=== PATIENT | male | born 1940 | race American Indian/Alaskan Native ===

== ENCOUNTER 2020-07-13 06:57 | Day surgery (SDC) | payer MEDICARE, OTHER ==
[~2020-07-13 06:57] MED LIST: LACTATED RINGERS 1,000 ML IV SCH; MIDAZOLAM 2 MG/2 ML INJ IV NR
--- NOTE | 2020-07-13 08:19 | Anesthesia Consultation ---
Anesthesia Consult and Med Hx Date of service: 07/13/20 - Airway Anesthetic Teeth Evaluation: Dentures (Full plates- upper and lower) ROM Head & Neck: Adequate Mental/Hyoid Distance: Adequate Mallampati Class: Class II Intubation Access Assessment: Probably Good - Pulmonary Exam CTA: Yes - Pre-Operative Health Status ASA Pre-Surgery Classification: ASA2 Proposed Anesthetic Plan: General - Pulmonary Hx Smoking: No Hx Asthma: No COPD: No Hx Pneumonia: No Hx Sleep Apnea: No (JUNIE PRE SCREEN HIGH RISK) - Cardiovascular System Hx Hypertension: Yes Hx Heart Attack/AMI: No Hx Pacemaker: No Hx Internal Defibrillator: No Hx Heart Murmur: No - Central Nervous System Hx Seizures: No Hx Back Pain: Yes (NECK & BACK PAIN WITH SARAH ARM PAIN- RECENT EPIDURALS) Hx Psychiatric Problems: No - Endocrine Hx End Stage Renal Disease: No Hx Cirrhosis: No Hx Non-Insulin Dependent Diabetes: Yes Hx Thyroid Disease: No - Hematic Hx Anemia: No Hx Sickle Cell Disease: No - Other Systems Hx Alcohol Use: No Hx Substance Use: No Hx Cancer: No Hx Obesity: Yes (BMI-38.0kg) - Additional Comments Anesthesia Medical History Comments: Patient denied previous anesthesia complications. He was brought in on a wheelchair on account of previous lower back surgrey.
--- NOTE | 2020-07-13 08:21 | Anesthesia Day of Surgery ---
Anesthesia Day of Surgery - Day of Surgery Patient Examined: Yes Patient H&P Reviewed: Yes Patient is NPO: Yes Beta Blockers: No Cardiac Clearance: No Pulmonary Clearance: No Du's Test: N/A
[2020-07-13] MEDS ORDERED: HYDROcodone/ACETAMINOPHEN 5-325 MG TAB PO PRN (08:26)
[2020-07-13] MEDS ORDERED: fentaNYL 100 MCG/2 ML INJ IV PRN (08:26)
[2020-07-13] MEDS ORDERED: propofoL 200 MG/20 ML VIAL IV ONE (09:44)
[2020-07-13] MEDS ORDERED: fentaNYL 100 MCG/2 ML INJ ONE (09:44)
[2020-07-13] MEDS ORDERED: ONDANSETRON 4 MG/2 ML INJ ONE (09:51)
[2020-07-13] MEDS ORDERED: LIDOCAINE PF 100 MG/5 ML (CARDIAC SYRINGE) IV ONE (09:51)
[2020-07-13] MEDS ORDERED: ceFAZolin 1 GM VIAL ONE (10:10)
--- NOTE | 2020-07-13 10:52 | Short Stay Summary ---
Short Stay Documentation Date of service: 07/13/20 - History H&P: obtained from office - Allergies and Medications Current Medications: Allergies No Known Allergies Allergy (Verified 06/16/20 11:53) Home Medications Medication Instructions Recorded Confirmed Last Taken Type Acetaminophen [Tylenol] 1,000 mg PO PRN PRN 06/16/20 06/16/20 07/12/20 History Cholecalciferol (Vitamin D3) 25 mcg PO DAILY 06/16/20 06/16/20 07/12/20 History [Vitamin D3] Cyanocobalamin (Vitamin B-12) 1,000 mcg PO DAILY 06/16/20 06/16/20 07/12/20 History [B-12] Docusate Sodium [Dok] 100 mg PO PRN PRN 06/16/20 06/16/20 07/12/20 History Finasteride [Proscar] 5 mg PO DAILY 06/16/20 06/16/20 07/12/20 History Gabapentin [Neurontin] 800 mg PO TID 06/16/20 06/16/20 07/12/20 History Ibuprofen [Motrin] 800 mg PO Q8HR PRN 06/16/20 07/13/20 07/08/20 History Levothyroxine [Synthroid] 50 mcg PO QAM 06/16/20 06/16/20 07/12/20 History Losartan [Cozaar] 100 mg PO QDAY 06/16/20 06/16/20 07/12/20 History Sennosides [Senna] 8.6 mg PO PRN PRN 06/16/20 06/16/20 07/12/20 History Simvastatin 40 mg PO DAILY 06/16/20 06/16/20 07/12/20 History Terazosin HCl 5 mg PO QHS 06/16/20 06/16/20 07/12/20 History Active Medications Hydrocodone Bitart/Acetaminophen (Hydrocodone/Acetaminophen 5-325 Mg Tab) 2 each PO ONCE PRN PRN Reason: Pain, Moderate (4-6) Stop: 07/13/20 18:00 Fentanyl (Fentanyl 100 Mcg/2 Ml Inj) 50 mcg IV Q5MIN PRN PRN Reason: Pain , Severe (7-10) Stop: 07/13/20 23:00 Lactated Ringer's (Lactated Ringers) 1,000 mls @ 100 mls/hr IV DIRECT KATHI Stop: 07/13/20 23:59 Last Admin: 07/13/20 08:45 Dose: 100 mls/hr Documented by: - Brief post op/procedure progress note Date of procedure: 07/13/20 Pre-op diagnosis: phimosis Post-op diagnosis: same Procedure: circ Anesthesia: GETA Surgeon: RAFIA MILIAN Estimated blood loss: minimal Pathology: list (foreksin) Condition: stable - Hospital course Hospital course: norco & macorbid on chart - Disposition Condition at discharge: Stable Disposition: DC-01 TO HOME OR SELFCARE Short Stay Discharge Plan Follow up with: JULIETA STEEL MD [Primary Care Provider] - 7 Days
--- NOTE | 2020-07-13 12:10 | Operative Report ---
PREOPERATIVE DIAGNOSES: Severe phimosis, vitiligo. POSTOPERATIVE DIAGNOSES: Severe phimosis, vitiligo. PROCEDURE: Circumcision. SURGEON: Michel Willis MD ANESTHESIA: General. ESTIMATED BLOOD LOSS: Minimal. FLUIDS: Crystalloid. COMPLICATIONS: No complications. INDICATIONS: This patient is a 80-year-old gentleman with a significant phimosis despite medical management, history of diabetes. Discussed options. He agreed to proceed with surgical intervention. He has inability to retract his foreskin. DESCRIPTION OF PROCEDURE: The patient was taken to the operative suite, placed in a supine position. After adequate general anesthesia, he was prepped and draped in a sterile fashion. Foreskin could not be retracted initially, a dorsal and ventral slit was made with a hemostat. Foreskin was retracted. Betadine was then swab into the undersurface of the foreskin and glans. The patient had significant adhesions of the foreskin, was able to dissect it free. Foreskin was circumferentially removed and sent for routine pathologic evaluation. Shaft skin was retracted. Adequate hemostasis was achieved. The proximal and distal shaft skin was reapproximated and closed with 3-0 chromic in interrupted fashion. Adequate hemostasis was achieved. Xeroform gauze was placed around the incision. Soniya and Coban was also placed. The patient tolerated the procedure well and was extubated and taken to recovery room and [facility] [place]. JOB# [id number] ALE/CRISTOPHER
[2020-07-13 12:18] VITALS: BP 137/50
--- NOTE | 2020-07-13 13:03 | Post Anesthesia Evaluation ---
- Post Anesthesia Evaluation Patient Participated: Yes Airway Patent: Yes Stable Respiratory Function: Yes Nausea/Vomiting: No Temp > 96.8F: Yes Pain Manageable: Yes Adequeate Hydration: Yes Anesthesia Complications: No
== END 2020-07-13 12:33 | disposition home or self-care (01) ==
LOC: OR 06:57
PROVIDERS: ATTEND Urology
DX: N47.1 Phimosis (principal); Z20.822 Contact with and (suspected) exposure to COVID-19; E78.00 Pure hypercholesterolemia, unspecified; I10 Essential (primary) hypertension; K21.9 Gastro-esophageal reflux disease without esophagitis; E66.9 Obesity, unspecified; M19.90 Unspecified osteoarthritis, unspecified site; E11.9 Type 2 diabetes mellitus without complications; Z79.899 Other long term (current) drug therapy; Z96.651 Presence of right artificial knee joint; Z98.890 Other specified postprocedural states; Z68.38 Body mass index [BMI] 38.0-38.9, adult
CPT/HCPCS: 54161; 82962; 88304; 88312; J0690; J2001; J2250; J2405; J2704; J3010; J7120; U0003